=== PATIENT | male | born 1965 | race Caucasian/White ===

== ENCOUNTER → 2018-08-20 | Outpatient (REF) | payer MEDICARE, MEDICAID | LOC: M SFHCCLAY 13:28 | PROVIDERS: ATTEND Nurse Practitioner Family | DX: J02.9 Acute pharyngitis, unspecified (principal) | CPT/HCPCS: 87070; 87880; G0463 ==

== ENCOUNTER → 2019-02-18 | Outpatient (REF) | payer MEDICARE, MEDICAID ==
[2019-02-18 12:23] LABS: HEMATOCRIT 44.8 % (42.0-52.0); HEMOGLOBIN 15.4 g/dl (13.5-17.5); MEAN CORPUSCULAR HEMOGLOBIN 32.8 pg (27.0-33.0); MEAN CORPUSCULAR HGB CONC 34.4 g/dl (32.0-36.5); MEAN CORPUSCULAR VOLUME 95.5 fl (80.0-96.0); PLATELET COUNT, AUTOMATED 272 10^3/uL (150-450); RED BLOOD COUNT 4.69 10^6/uL (4.30-6.10); WHITE BLOOD COUNT 7.6 10^3/uL (4.0-10.0)
[2019-02-18 12:43] LABS: HEMOGLOBIN A1c 5.2 %
[2019-02-18 13:03] LABS: CHOLESTEROL RISK RATIO 2.879 (<5); TOTAL 25(OH) VITAMIN D 26.6 NG/ML (30.0-100.0)
== END ==
LOC: M SFHCCLAY 08:58
PROVIDERS: ATTEND Nurse Practitioner Family
DX: I10 Essential (primary) hypertension (principal); R73.9 Hyperglycemia, unspecified; E78.2 Mixed hyperlipidemia; Z13.21 Encounter for screening for nutritional disorder; Z79.899 Other long term (current) drug therapy

== ENCOUNTER → 2020-04-09 | Outpatient (CLI) | payer MEDICARE, MEDICAID ==
[2020-04-09 13:01] LABS: COLLAGEN EPINEPHRINE 88 SECONDS (74-162)
== END ==
LOC: M LAB 12:03
PROVIDERS: ATTEND Physician Assistant
DX: M47.22 Other spondylosis with radiculopathy, cervical region (principal)

== ENCOUNTER → 2020-04-21 | Outpatient (CLI) | payer MEDICARE, MEDICAID | LOC: M LABSMTC 12:41 | PROVIDERS: ATTEND Physical Medicine & Rehabilitation | DX: Z01.818 Encounter for other preprocedural examination (principal); Z11.59 Encounter for screening for other viral diseases ==

== ENCOUNTER → 2020-05-06 | Outpatient (CLI) | payer MEDICAID, MEDICARE ==
--- NOTE | 2020-05-06 19:39 | REPVR ---
PROCEDURE INFORMATION: Exam: MR Thoracic Spine Without Contrast Exam date and time: 05/06/2020 5:12 PM Age: 54 years old Clinical indication: Pain in thoracic intervertebral disc disorder; With radiculopathy; Bilateral; Additional info: Spondylosis with radiculopathy, cervical region TECHNIQUE: Imaging protocol: Multiplanar magnetic resonance images of the thoracic spine without intravenous contrast. COMPARISON: No relevant prior studies available. FINDINGS: Vertebrae: Anatomic alignment. No acute fracture seen. Spinal cord: Normal signal. No cord compression. Disc desiccation with mjyq-nl-bbgvviva disc height loss and spondylosis at T8-9 and T9-10. Endplate inflammation ventrally from T9-10 through T11-12 is likely inflammatory/degenerative. T1-T2: No significant disc disease. No significant spinal canal stenosis. T2-T3: No significant disc disease. No significant spinal canal stenosis. T3-T4: No significant disc disease. No significant spinal canal stenosis. T4-T5: No significant disc disease. No significant spinal canal stenosis. T5-T6: Subtle central disc protrusion does not contribute to central spinal canal stenosis. T6-T7: Subtle central disc protrusion does not contribute to central spinal canal stenosis. T7-T8: Small right paracentral disc protrusion does not contribute to central spinal canal stenosis. T8-T9: No significant disc disease. No significant spinal canal stenosis. T9-T10: Small left paracentral disc protrusion does not contribute to central spinal canal stenosis. T10-T11: No significant disc disease. No significant spinal canal stenosis. T11-T12: No significant disc disease. No significant spinal canal stenosis. Soft tissues: Mild prominence of right paravertebral venous plexus around the T6 and T7 levels of uncertain significance, probably incidental. IMPRESSION: 1. Images are mildly motion degraded. 2. Bgtb-oi-zszdotot mid to lower thoracic degenerative disc disease, in particular at T8-9 and T9-10. Electronically signed by: Alayna Patel On 05/06/2020 19:39:04 PM
--- NOTE | 2020-05-06 19:53 | REPVR ---
PROCEDURE INFORMATION: Exam: MR Lumbar Spine Without Contrast. Exam date and time: 05/06/2020 5:12 PM Age: 54 years old Clinical indication: Low back pain; Additional info: Spondylosis with radiculopathy, cervical region TECHNIQUE: Imaging protocol: Multiplanar magnetic resonance images of the lumbar spine without intravenous contrast. Other technique: COMPARISON MORE: MRI-Spine,Thoracic without con 05/06/2020 6:07:47 PM COMPARISON: No relevant prior studies available. FINDINGS: Vertebrae: Mild dextroconvex scoliosis. No acute fracture seen. Spinal cord: The conus medullaris ends normally. Prominent left eccentric disc height loss and spondylosis at L3-L4 with endplate inflammation. This degenerative disc disease is eccentric to the inner curvature of dextroconvex scoliosis. L1-L2: Gcai-jr-suusfjoo facet arthropathy. No stenoses. L2-L3: Wrpj-kn-gegzcnzv facet arthropathy. No stenoses. L3-L4: Moderate left eccentric disc osteophyte complex, facet arthropathy and ligamentum flavum buckling. The central spinal canal remains patent. The left lateral recess is narrowed near the left L4 nerve root. Moderate to severe left neural foraminal stenosis may be cause of left L3 distribution radiculopathy. No significant right neural foraminal narrowing. L4-L5: Moderate right and mffp-qv-fyrhefyi left facet arthropathy. No stenoses. L5-S1: Qwpb-lz-vxluznyx facet arthropathy. No stenoses. Bladder: There is marked bladder distension. The bladder wall appears thickened and trabeculated. Soft tissues: Unremarkable. IMPRESSION: 1. Significantly distended bladder which demonstrates a thickened, trabeculated wall. Please correlate clinically for causes of chronic outlet obstruction. 2. Degenerative dextroconvex scoliosis. 3. Left eccentric degenerative disc disease along the inner curvature of scoliosis at L3-L4. 4. Left lateral recess and neural foraminal stenoses at L3-L4. Electronically signed by: Alayna Patel On 05/06/2020 19:53:02 PM
== END ==
LOC: M RAD 17:10
PROVIDERS: ATTEND Physician Assistant
DX: M47.22 Other spondylosis with radiculopathy, cervical region (principal); M51.34 Other intervertebral disc degeneration, thoracic region; M48.061 Spinal stenosis, lumbar region without neurogenic claudication; N32.89 Other specified disorders of bladder

== ENCOUNTER → 2020-05-30 | Outpatient (CLI) | payer MEDICARE, MEDICAID | LOC: M LABSMTC 10:18 | PROVIDERS: ATTEND Physical Medicine & Rehabilitation | DX: Z20.828 Contact with and (suspected) exposure to other viral communicable diseases (principal) ==

== ENCOUNTER → 2020-07-01 | Outpatient (REF) | payer MEDICARE, MEDICAID ==
[2020-07-01 17:30] LABS: HEMATOCRIT 38.5 % (42.0-52.0); HEMOGLOBIN 12.6 g/dl (13.5-17.5); MEAN CORPUSCULAR HEMOGLOBIN 30.6 pg (27.0-33.0); MEAN CORPUSCULAR HGB CONC 32.7 g/dl (32.0-36.5); MEAN CORPUSCULAR VOLUME 93.4 fl (80.0-96.0); PLATELET COUNT, AUTOMATED 298 10^3/uL (150-450); RED BLOOD COUNT 4.12 10^6/uL (4.30-6.10); WHITE BLOOD COUNT 12.2 10^3/uL (4.0-10.0)
[2020-07-01 19:15] LABS: ALBUMIN 3.7 GM/DL (3.2-5.2); ALT/SGPT 16 U/L (12-78); BILIRUBIN,TOTAL 0.3 MG/DL (0.2-1.0); BLOOD UREA NITROGEN 19 MG/DL (7-18); CALCIUM LEVEL 9.3 MG/DL (8.5-10.1); CARBON DIOXIDE LEVEL 27 MEQ/L (21-32); CHLORIDE LEVEL 106 MEQ/L (98-107); CHOLESTEROL LEVEL 181 MG/DL (<200); CHOLESTEROL RISK RATIO 3.934 (<5); CREATININE FOR GFR 1.12 MG/DL (0.70-1.30); GLOMERULAR FILTRATION RATE > 60.0 (>56); GLUCOSE, FASTING 91 MG/DL (70-100); HDL CHOLESTEROL 46 MG/DL (>40); LDL CHOLESTEROL 99 MG/DL (<100); NON-HDL-C 135 MG/DL; POTASSIUM SERUM 4.3 MEQ/L (3.5-5.1); SODIUM LEVEL 139 MEQ/L (136-145); TOTAL PROTEIN 6.2 GM/DL (6.4-8.2); TRIGLYCERIDES LEVEL 180 MG/DL (<150)
[2020-07-01 19:27] LABS: TOTAL 25(OH) VITAMIN D 24.6 NG/ML (30.0-100.0)
[2020-07-01 20:47] LABS: HEMOGLOBIN A1c 5.6 %
[2020-07-02 09:06] LABS: FERRITIN 161 NG/ML (26-388); IRON (FE) 62 UG/DL (65-175); PERCENT SATURATION 24.9 % (19.7-50.0); TOTAL IRON BINDING CAPACITY 249 UG/DL (250-450)
[2020-07-02 09:57] LABS: VITAMIN B12 LEVEL 281 PG/ML
[2020-07-02 09:58] LABS: FOLATE 12.1 NG/ML
== END ==
LOC: M SFHCCLAY 10:47
PROVIDERS: ATTEND Nurse Practitioner Family
DX: K21.9 Gastro-esophageal reflux disease without esophagitis (principal); M25.512 Pain in left shoulder; R73.9 Hyperglycemia, unspecified; E78.5 Hyperlipidemia, unspecified; E55.9 Vitamin D deficiency, unspecified
CPT/HCPCS: 80053; 80061; 82306; 82607; 82728; 82746; 83036; 83550; 85027; 85046; G0463

== ENCOUNTER → 2020-07-02 | Outpatient (REF) | payer MEDICARE, MEDICAID | LOC: M SFHCCLAY 08:48 | PROVIDERS: ATTEND Nurse Practitioner Family | DX: K21.9 Gastro-esophageal reflux disease without esophagitis (principal); D64.9 Anemia, unspecified ==

== ENCOUNTER → 2020-07-14 | Outpatient (CLI) | payer MEDICARE, MEDICAID | LOC: M LABSMTC 11:47 | PROVIDERS: ATTEND Physical Medicine & Rehabilitation | DX: Z01.812 Encounter for preprocedural laboratory examination (principal); Z20.828 Contact with and (suspected) exposure to other viral communicable diseases; R73.9 Hyperglycemia, unspecified; E78.5 Hyperlipidemia, unspecified | CPT/HCPCS: 82043; U0003 ==

== ENCOUNTER → 2020-07-14 | Outpatient (REF) | payer MEDICARE, MEDICAID ==
[2020-07-14 17:18] LABS: CREATININE, URINE 70.4 MG/DL; MALB URINE SIEMENS 7.7 MG/L; MAU/CREAT RATIO 10.9 MCG/MG (0.0-30.0)
== END ==
LOC: M SFHCCLAY 14:07
PROVIDERS: ATTEND Nurse Practitioner Family
DX: R73.9 Hyperglycemia, unspecified (principal); E78.5 Hyperlipidemia, unspecified

== ENCOUNTER → 2020-08-10 | Outpatient (REF) | payer MEDICARE, MEDICAID ==
[2020-08-10 13:57] LABS: BASO # 0.1 10^3/uL (0.0-0.2); BASO % 0.7 % (0.0-1.0); EOS # 0.5 10^3/uL (0.0-0.5); EOS % 6.2 % (0.0-3.0); HEMATOCRIT 40.4 % (42.0-52.0); LYMPH # 3.4 10^3/uL (1.5-5.0); LYMPH % 41.6 % (24.0-44.0); MEAN CORPUSCULAR HEMOGLOBIN 30.2 pg (27.0-33.0); MEAN CORPUSCULAR HGB CONC 32.2 g/dl (32.0-36.5); MEAN CORPUSCULAR VOLUME 93.7 fl (80.0-96.0); MONO # 0.9 10^3/uL (0.0-0.8); MONO % 11.4 % (0.0-5.0); NEUTROPHILS # 3.3 10^3/uL (1.5-8.5); NEUTROPHILS % 39.9 % (36.0-66.0); PLATELET COUNT, AUTOMATED 268 10^3/uL (150-450); RED BLOOD COUNT 4.31 10^6/uL (4.30-6.10); WHITE BLOOD COUNT 8.2 10^3/uL (4.0-10.0)
[2020-08-10 14:23] LABS: ERYTHROCYTE SEDIMENTATION RATE 19 mm/hr (0-20)
== END ==
LOC: M SFHCPLAZ 09:13
PROVIDERS: ATTEND Internal Medicine Infectious Disease
DX: A69.20 Lyme disease, unspecified (principal); M47.22 Other spondylosis with radiculopathy, cervical region
CPT/HCPCS: 36415; 81374; 85025; 85652; 86140; G0463

== ENCOUNTER → 2020-12-07 | Outpatient (CLI) | payer MEDICARE, MEDICAID ==
[~2020-12-07] MED LIST: E-Z-GAS II EFFERVESCENT PACKET (SODIUM BICARB./CITRIC ACID/SIMETHICONE) As Ordered ONE; E-Z-HD 98% w/w 340GM SUSP BTL As Ordered ONE; E-Z-PAQUE 96% w/w SUSP 176GM BTL As Ordered ONE
--- NOTE | 2020-12-07 17:12 | REP ---
INDICATION: HEARTBURN. COMPARISON: None TECHNIQUE: This procedure was performed by Blessing Cullen [facility], under the direct supervision of Dr. Moralez. Images were reviewed with Dr. Moralez prior to dictation. Liquid barium and gas producing crystals were given in the erect sitting position, as well as liquid barium in the prone oblique position in order to perform a double contrast upper GI examination. FINDINGS: The manager car film shows no organomegaly or pathological masses. The intestinal gas pattern is unremarkable. The oral and pharyngeal stages of deglutition were unremarkable. There is no evidence of esophagitis, stricture, or mucosal ring. Tertiary contractions were seen multiple times throughout the exam. During the exam multiple episodes of esophageal spasms at the GE junction were visualized. This greatly restricted the flow of contrast into the stomach, causing a delay in esophageal emptying. There is evidence of a small hiatal hernia. There was no gastroesophageal reflux noted . IMPRESSION: 1. Delayed esophageal emptying due to esophageal spasms at the GE junction. 2. Tertiary contractions. 3. Small hiatal hernia. 1.4 minutes of fluoroscopy time was utilized for this procedure. Some fluoroscopic images are performed with last image hold technology. These images require no additional radiation. <Electronically signed by Blessing Cullen > 12/07/20 1621 <Electronically signed by Griffin Moralez > 12/07/20 [id number]
== END ==
LOC: M RAD 08:35
PROVIDERS: ATTEND Internal Medicine Gastroenterology
DX: K22.4 Dyskinesia of esophagus (principal); K44.9 Diaphragmatic hernia without obstruction or gangrene

== ENCOUNTER → 2021-02-12 | Outpatient (CLI) | payer MEDICARE, MEDICAID ==
[~2021-02-12] MED LIST changes: +BISO10TA14 PO; +CHLO125TA PO; -E-Z-GAS II EFFERVESCENT PACKET (SODIUM BICARB./CITRIC ACID/SIMETHICONE) As Ordered ONE; -E-Z-HD 98% w/w 340GM SUSP BTL As Ordered ONE; -E-Z-PAQUE 96% w/w SUSP 176GM BTL As Ordered ONE; +GABA-282 PO; +HYDR-3719 PO; +IBUP80TA PO; +INCR1INH INH; +LISI20TA33 PO; +OMEP-221 PO; +SIMV40TA20 PO; +SUCR1TAB56 PO
== END ==
LOC: M LABSMTC 09:32
PROVIDERS: ATTEND Anesthesiology
DX: Z01.818 Encounter for other preprocedural examination (principal); Z11.52 Encounter for screening for COVID-19

== ENCOUNTER 2021-02-17 11:35 | Day surgery (SDC) | payer MEDICARE, MEDICAID ==
[~2021-02-17] VITALS: Ht 162.6 cm; Wt 58.1 kg
[~2021-02-17 11:35] MED LIST changes: +NS 1,000 ML IV ONE
[2021-02-17] MEDS ORDERED: LIDOCAINE 2% 100MG/5ML SDV (FOR ANES.) As Ordered ONE (14:13)
[2021-02-17] MEDS ORDERED: propofoL 200 MG/20 ML VIAL As Ordered ONE (14:13)
[2021-02-17] MEDS ORDERED: fentaNYL 100 MCG/2 ML INJECTION (J3010) As Ordered ONE (14:14)
--- NOTE | 2021-02-17 14:42 | ROOR ---
Patient Name: Dimas Ghosh Procedure Date: 02/17/2021 2:22 PM Date of : 1965 Age: 55 Room: [facility] Gender: Male Note Status: Finalized Procedure: Upper GI endoscopy Indications: Esophageal dysphagia, Heartburn (Dysphagia improved/essentially resolved on PPI meds) Providers: Lake La MD Referring MD: Ariane Neely NP Requesting Provider: Medicines: Monitored Anesthesia Care Complications: No immediate complications. Procedure: Pre-Anesthesia Assessment: - The heart rate, respiratory rate, oxygen saturations, blood pressure, adequacy of pulmonary ventilation, and response to care were monitored throughout the procedure. The Endoscope was introduced through the mouth, and advanced to the second part of duodenum. The upper GI endoscopy was accomplished without difficulty. The patient tolerated the procedure well. Findings: Abnormal motility was noted in the lower third of the esophagus. There is spasticity of the esophageal body. The exam of the esophagus was otherwise normal. The entire examined stomach was normal. The examined duodenum was normal. Impression: - Abnormal esophageal motility with extra waves and spacticity in distal esophagus. - The esophagus is otherwiise normal - Normal stomach. - Normal examined duodenum. - No specimens collected. Recommendation: - Continue present medications. - Observe patient's clinical course. - For recurrent symptoms, would rec referral for esophageal motility testing Procedure Code(s): --- Professional --- 60900, Esophagogastroduodenoscopy, flexible, transoral; diagnostic, including collection of specimen(s) by brushing or washing, when performed (separate procedure) Diagnosis Code(s): --- Professional --- K22.4, Dyskinesia of esophagus R13.14, Dysphagia, pharyngoesophageal phase R12, Heartburn CPT copyright 2019 [employer]. All rights reserved. The codes documented in this report are preliminary and upon cane packer review may be revised to meet current compliance requirements. Lake La MD Lake La MD 02/17/2021 2:41:45 PM Electronically signed by Lake La MD Number of Addenda: 0 Note Initiated On: 02/17/2021 2:22 PM Estimated Blood Loss: Estimated blood loss: none.
[2021-02-17] MEDS ORDERED: ePHEDrine SULFATE 25 MG/5 ML(5MG/ML) SYRINGE As Ordered ONE (14:57)
--- NOTE | 2021-02-17 14:57 | ROOR ---
Patient Name: Dimas Ghosh Procedure Date: 02/17/2021 2:25 PM Date of : 1965 Age: 55 Room: [facility] Gender: Male Note Status: Finalized Procedure: Colonoscopy Indications: Change in bowel habits Providers: Lake La MD Referring MD: Ariane Neely NP Requesting Provider: Medicines: Monitored Anesthesia Care Complications: No immediate complications. Procedure: Pre-Anesthesia Assessment: - The heart rate, respiratory rate, oxygen saturations, blood pressure, adequacy of pulmonary ventilation, and response to care were monitored throughout the procedure. The Colonoscope was introduced through the anus and advanced to the cecum, identified by appendiceal orifice and ileocecal valve. The colonoscopy was performed without difficulty. The patient tolerated the procedure well. The quality of the bowel preparation was good. Findings: The perianal and digital rectal examinations were normal. Mild sigmoid diverticulosis and small internal hemorrhoids. The exam was otherwise without abnormality on direct and retroflexion views. Impression: - Mild sigmoid diverticulosis and small internal hemorrhoids. - The examination was otherwise normal on direct and retroflexion views. - No specimens collected. Recommendation: - Continue present medications. Procedure Code(s): --- Professional --- 50704, Colonoscopy, flexible; diagnostic, including collection of specimen(s) by brushing or washing, when performed (separate procedure) Diagnosis Code(s): --- Professional --- R19.4, Change in bowel habit CPT copyright 2019 [employer]. All rights reserved. The codes documented in this report are preliminary and upon legal secretary receptionist review may be revised to meet current compliance requirements. Lake La MD Lake La MD 02/17/2021 2:57:26 PM Electronically signed by Lake La MD Number of Addenda: 0 Note Initiated On: 02/17/2021 2:25 PM Estimated Blood Loss: Estimated blood loss: none.
[2021-02-17 15:18] VITALS: BP 129/75
== END 2021-02-17 15:19 | disposition home or self-care (01) ==
LOC: M OPP 11:35
PROVIDERS: ATTEND Internal Medicine Gastroenterology
DX: K57.30 Diverticulosis of large intestine without perforation or abscess without bleeding (principal); K64.8 Other hemorrhoids; R19.4 Change in bowel habit; K22.4 Dyskinesia of esophagus; R13.14 Dysphagia, pharyngoesophageal phase; R12 Heartburn; R11.0 Nausea; A69.20 Lyme disease, unspecified; Z79.891 Long term (current) use of opiate analgesic; Z79.899 Other long term (current) drug therapy; F17.210 Nicotine dependence, cigarettes, uncomplicated
CPT/HCPCS: 43235; 45378; J3010

== ENCOUNTER → 2022-09-15 | Outpatient (CLI) | payer MEDICARE, MEDICAID ==
[~2022-09-15] MED LIST changes: -NS 1,000 ML IV ONE; -OMEP-221 PO; +OMEP40CA5 PO; +PROHANCE 279.3MG/ML 15ML VIAL ONE
== END ==
LOC: M PLAIMG 14:39
PROVIDERS: ATTEND Surgery
DX: J98.59 Other diseases of mediastinum, not elsewhere classified (principal)
CPT/HCPCS: 71552; A9576

== ENCOUNTER → 2023-02-21 | Outpatient (REF) | payer MEDICARE, MEDICAID ==
[~2023-02-21] MED LIST changes: -PROHANCE 279.3MG/ML 15ML VIAL ONE
[2023-02-21 17:32] LABS: BASO # 0.1 10^3/uL (0.0-0.2); BASO % 0.8 % (0.0-1.0); EOS # 0.4 10^3/uL (0.0-0.5); EOS % 4.5 % (0.0-3.0); HEMATOCRIT 37.2 % (42.0-52.0); HEMOGLOBIN 12.3 g/dl (13.5-17.5); LYMPH # 3.9 10^3/uL (1.5-5.0); LYMPH % 44.4 % (24.0-44.0); MEAN CORPUSCULAR HEMOGLOBIN 31.8 pg (27.0-33.0); MEAN CORPUSCULAR HGB CONC 33.1 g/dl (32.0-36.5); MEAN CORPUSCULAR VOLUME 96.1 fl (80.0-96.0); MONO # 1.1 10^3/uL (0.0-0.8); MONO % 12.6 % (2.0-8.0); NEUTROPHILS # 3.3 10^3/uL (1.5-8.5); NEUTROPHILS % 37.4 % (36.0-66.0); PLATELET COUNT, AUTOMATED 256 10^3/uL (150-450); RED BLOOD COUNT 3.87 10^6/uL (4.30-6.10); WHITE BLOOD COUNT 8.9 10^3/uL (4.0-10.0)
[2023-02-21 18:18] LABS: ALBUMIN 3.8 G/DL (3.2-5.2); ALKALINE PHOSPHATASE 84 U/L (46-116); ALT/SGPT 17 U/L (7.0-40); AST/SGOT < 8 U/L (<34); BILIRUBIN,TOTAL 0.2 MG/DL (0.3-1.2); BLOOD UREA NITROGEN 24 MG/DL (9-23); CALCIUM LEVEL 9.4 MG/DL (8.5-10.1); CARBON DIOXIDE LEVEL 24 MMOL/L (20-31); CHLORIDE LEVEL 106 MMOL/L (98-107); CHOLESTEROL LEVEL 147 MG/DL (<200); CHOLESTEROL RISK RATIO 3.76 (<5); CREATININE FOR GFR 1.04 MG/DL (0.70-1.30); FREE T4 1.18 NG/DL (0.89-1.76); GLOMERULAR FILTRATION RATE > 60.0 (>56); GLUCOSE, FASTING 83 MG/DL (60-100); LDL CHOLESTEROL 66.2 MG/DL (<100); POTASSIUM SERUM 4.5 MMOL/L (3.5-5.1); SODIUM LEVEL 140 MMOL/L (136-145); TOTAL PROTEIN 6.3 G/DL (5.7-8.2); TRIGLYCERIDES LEVEL 209 MG/DL (<150)
[2023-02-21 19:28] LABS: HEMOGLOBIN A1c 5.6 % (4.0-6.0)
== END ==
LOC: M SFHCCLAY 14:02
PROVIDERS: ATTEND Nurse Practitioner Family
DX: I65.23 Occlusion and stenosis of bilateral carotid arteries (principal); F17.228 Nicotine dependence, chewing tobacco, with other nicotine-induced disorders; I73.9 Peripheral vascular disease, unspecified; E55.9 Vitamin D deficiency, unspecified; R73.9 Hyperglycemia, unspecified; I10 Essential (primary) hypertension; E78.2 Mixed hyperlipidemia; M47.27 Other spondylosis with radiculopathy, lumbosacral region; Z89.611 Acquired absence of right leg above knee
CPT/HCPCS: 80053; 80061; 83036; 84439; 84443; 85025; G0463

== ENCOUNTER → 2023-02-22 | Outpatient (REF) | payer MEDICARE, MEDICAID ==
[2023-02-22 12:29] LABS: CREATININE, URINE 74.2 MG/DL; MALB URINE SIEMENS < 3.0 MG/L
== END ==
LOC: M SFHCCLAY 11:17
PROVIDERS: ATTEND Nurse Practitioner Family
DX: F17.228 Nicotine dependence, chewing tobacco, with other nicotine-induced disorders (principal); I73.9 Peripheral vascular disease, unspecified; E55.9 Vitamin D deficiency, unspecified; I10 Essential (primary) hypertension; R73.9 Hyperglycemia, unspecified; M47.27 Other spondylosis with radiculopathy, lumbosacral region; I65.23 Occlusion and stenosis of bilateral carotid arteries; Z89.611 Acquired absence of right leg above knee

== ENCOUNTER → 2023-09-29 | Outpatient (CLI) | payer MEDICARE, MEDICAID | LOC: M RAD 10:53 | PROVIDERS: ATTEND Physician Assistant | DX: M48.062 Spinal stenosis, lumbar region with neurogenic claudication (principal) ==

== ENCOUNTER → 2023-10-17 | Outpatient (REF) | payer MEDICARE, MEDICAID | LOC: M LAB REF 16:43 | PROVIDERS: ATTEND Ophthalmology | DX: D23.121 Other benign neoplasm of skin of left upper eyelid, including canthus (principal) ==

== ENCOUNTER → 2023-10-17 | Outpatient (CLI) | payer MEDICARE, MEDICAID | LOC: M RAD 16:12 | PROVIDERS: ATTEND Nurse Practitioner Family | DX: Z53.9 Procedure and treatment not carried out, unspecified reason (principal) ==

== ENCOUNTER → 2024-07-01 | Outpatient (REF) | payer MEDICARE, MEDICAID ==
[~2024-07-01] MED LIST changes: +GABA-1172 PO; -GABA-282 PO
== END ==
LOC: M SFHCCLAY 13:23
PROVIDERS: ATTEND Nurse Practitioner Family
DX: D64.9 Anemia, unspecified (principal); E55.9 Vitamin D deficiency, unspecified; I73.9 Peripheral vascular disease, unspecified; I10 Essential (primary) hypertension; R73.9 Hyperglycemia, unspecified; F17.228 Nicotine dependence, chewing tobacco, with other nicotine-induced disorders; E78.2 Mixed hyperlipidemia; M47.27 Other spondylosis with radiculopathy, lumbosacral region; I65.23 Occlusion and stenosis of bilateral carotid arteries; Z89.611 Acquired absence of right leg above knee

== ENCOUNTER → 2025-04-07 | Outpatient (REF) | payer MEDICARE, MEDICAID ==
[2025-04-07 20:03] LABS: BASO # 0.1 10^3/uL (0.0-0.2); BASO % 0.9 % (0.0-1.0); EOS # 0.3 10^3/uL (0.0-0.5); EOS % 2.5 % (0.0-3.0); LYMPH # 2.6 10^3/uL (1.5-5.0); LYMPH % 26.6 % (24.0-44.0); MONO # 1.0 10^3/uL (0.0-0.8); MONO % 9.9 % (2.0-8.0); NEUTROPHILS # 5.9 10^3/uL (1.5-8.5); NEUTROPHILS % 59.8 % (36.0-66.0); PLATELET COUNT, AUTOMATED 443 10^3/uL (150-450)
[2025-04-07 20:05] LABS: VITAMIN B12 LEVEL 609 PG/ML (211-911)
[2025-04-07 20:06] LABS: IRON (FE) 68 UG/DL (65-175); TOTAL 25(OH) VITAMIN D 26.3 NG/ML (20.0-100.0)
[2025-04-07 20:07] LABS: PERCENT SATURATION 20.4 % (19.7-50.0)
[2025-04-07 20:09] LABS: ALT/SGPT 20 U/L (7.0-40); AST/SGOT 16 U/L (<34); CALCIUM LEVEL 9.1 MG/DL (8.3-10.6); CARBON DIOXIDE LEVEL 26 MMOL/L (20-31); CHLORIDE LEVEL 109 MMOL/L (98-107); CREATININE FOR GFR 1.30 MG/DL (0.70-1.30); GLOMERULAR FILTRATION RATE 62.5 (>49); POTASSIUM SERUM 4.1 MMOL/L (3.5-5.1); SODIUM LEVEL 144 MMOL/L (136-145)
[2025-04-07 20:52] LABS: HEPATITIS C VIRUS ABY INDEX < 0.02 INDEX (<0.8)
== END ==
LOC: M SFHCCLAY 14:30
PROVIDERS: ATTEND Nurse Practitioner Family
DX: N17.9 Acute kidney failure, unspecified (principal); K82.8 Other specified diseases of gallbladder; R16.0 Hepatomegaly, not elsewhere classified; D64.9 Anemia, unspecified; E55.9 Vitamin D deficiency, unspecified

== ENCOUNTER → 2025-07-08 | Outpatient (REF) | payer MEDICARE, MEDICAID ==
[2025-07-08 17:37] LABS: APPEARANCE, URINE CLEAR (CLEAR); BACTERIA, URINE AUTO NEGATIVE (NEGATIVE); BILIRUBIN, URINE AUTO NEGATIVE (NEGATIVE); BLOOD, URINE BLOOD NEGATIVE (NEGATIVE); GLUCOSE, URINE (UA) AUTO NEGATIVE (NEGATIVE); KETONE, URINE AUTO NEGATIVE (NEGATIVE); LEUKOCYTE ESTERASE, URINE AUTO 1+ (NEGATIVE); NITRITE, URINE AUTO NEGATIVE (NEGATIVE); PROTEIN, URINE AUTO NEGATIVE (NEGATIVE); RBC, URINE AUTO 1 /HPF (0-3); SPECIFIC GRAVITY URINE AUTO 1.020 (1.002-1.035); SQUAMOUS EPITHELIAL CELL UR AU 0 /HPF (0-6); UROBILINOGEN, URINE AUTO 0.2 mg/dL (0.0-2.0); WBC, URINE AUTO 5 /HPF (0-3)
[2025-07-08 17:47] LABS: BASO # 0.1 10^3/uL (0.0-0.2); BASO % 1.2 % (0.0-1.0); EOS # 0.3 10^3/uL (0.0-0.5); EOS % 4.5 % (0.0-3.0); LYMPH # 3.0 10^3/uL (1.5-5.0); LYMPH % 44.8 % (24.0-44.0); MONO # 0.8 10^3/uL (0.0-0.8); MONO % 12.4 % (2.0-8.0); NEUTROPHILS # 2.5 10^3/uL (1.5-8.5); NEUTROPHILS % 36.8 % (36.0-66.0); PLATELET COUNT, AUTOMATED 335 10^3/uL (150-450)
[2025-07-08 17:49] LABS: ALT/SGPT 11.0 U/L (7.0-40); AST/SGOT 17.0 U/L (<34); CALCIUM LEVEL 9.1 MG/DL (8.3-10.6); CARBON DIOXIDE LEVEL 24.0 MMOL/L (20-31); CHLORIDE LEVEL 110.0 MMOL/L (98-107); CHOLESTEROL LEVEL 187.0 MG/DL (<200); CHOLESTEROL RISK RATIO 4.72 (<5); CREATININE FOR GFR 1.11 MG/DL (0.70-1.30); GLOMERULAR FILTRATION RATE 75.6 (>49); LDL CHOLESTEROL 117.2 MG/DL (<100); NON-HDL-C 147.4 MG/DL; POTASSIUM SERUM 4.5 MMOL/L (3.5-5.1); SODIUM LEVEL 139.0 MMOL/L (136-145); TRIGLYCERIDES LEVEL 151.0 MG/DL (<150)
[2025-07-08 17:51] LABS: FREE T4 1.16 NG/DL (0.89-1.76)
[2025-07-08 18:12] LABS: CREATININE, URINE 215.2 MG/DL; MALB URINE SIEMENS 9.0 MG/L; MAU/CREAT RATIO 4.1 MCG/MG (0.0-30.0)
[2025-07-08 18:36] LABS: ESTIMATED AVERAGE GLUCOSE 108.0 MG/DL (60-110)
== END ==
LOC: M SFHCCLAY 11:32
PROVIDERS: ATTEND Nurse Practitioner Family
DX: N17.9 Acute kidney failure, unspecified (principal); K82.8 Other specified diseases of gallbladder; R16.0 Hepatomegaly, not elsewhere classified; D64.9 Anemia, unspecified; E55.9 Vitamin D deficiency, unspecified; I73.9 Peripheral vascular disease, unspecified; I10 Essential (primary) hypertension; F17.228 Nicotine dependence, chewing tobacco, with other nicotine-induced disorders; E78.2 Mixed hyperlipidemia; M47.27 Other spondylosis with radiculopathy, lumbosacral region; Z89.611 Acquired absence of right leg above knee; I65.23 Occlusion and stenosis of bilateral carotid arteries; R73.9 Hyperglycemia, unspecified; N13.30 Unspecified hydronephrosis; Z79.899 Other long term (current) drug therapy